=== PATIENT | male | born 1960 | race Two or more races ===

== ENCOUNTER → 2016-06-06 | Outpatient (CLI) | payer MEDICARE ==
[~2016-06-06] MED LIST: ABILIFY20 MG PO; CIPROFLOXACIN HCL PO; CITALOPRAM HBR40 MG PO; GABAPENTIN400 MG PO; INDERAL20 MG PO; KLONOPIN0.5 MG PO; LANTUS SOLOSTAR3 ML SUBQ; LEVEMIR100 UNITS/ SUBQ; LISINOPRIL5 MG PO; LITHIUM CARBONATE PO; METFORMIN PO; NEURONTIN300 MG PO; SEROQUEL400 MG PO; SEROQUEL50 M1 PO
[2016-06-06 12:21] LABS: HEMATOCRIT 45.3 % (38.0-50.0); HEMOGLOBIN 14.9 gm/dL (13.0-16.0); MEAN CELL VOLUME 87.1 FL (83-96); MEAN CORPUSCULAR HEMOGLOBIN 28.7 PG (28-34); MEAN PLATELET VOLUME 9.6 FL (6.5-11.5); RED BLOOD COUNT 5.2 X10e (3.90-5.60); RED CELL DISTRIBUTION WIDTH 13.8 % (11.0-15.5); WHITE BLOOD COUNT 6.9 X10e3 (4.0-10.5)
[2016-06-06 13:28] LABS: ALBUMIN SERUM 4.4 g/dL (3.5-5.0); ALKALINE PHOSPHATASE 63 U/L (32-92); ALT (SGPT) 31 U/L (10-40); AST (SGOT) 24 U/L (10-42); BILIRUBIN,TOTAL 0.8 mg/dL (0.2-2.0); BLOOD UREA NITROGEN 11 mg/dL (9-23); BUN/CREATININE RATIO 12.22; CALCIUM SERUM 9.4 mg/dL (8.4-10.2); CARBON DIOXIDE 29 mmol/L (22-31); CHLORIDE 108 mmol/L (100-111); CREATININE SERUM 0.9 mg/dL (0.6-1.4); GLOM FILT RATE Estimated ABOVE60 mL/min (>60); GLUCOSE FASTING 153 mg/dL (70-110); POTASSIUM 4.8 mmol/L (3.5-5.1); PROTEIN TOTAL SERUM 7.7 g/dL (6.0-8.3); SODIUM 138 mmol/L (135-145)
== END | disposition home or self-care (01) ==
LOC: CLAB 11:41
PROVIDERS: Nurse Practitioner Family
DX: B19.20 Unspecified viral hepatitis C without hepatic coma (principal)
CPT/HCPCS: 36415; 80053; 85027; 87522